=== PATIENT | female | born 1985 | race Hispanic/Latino ===

== ENCOUNTER 2024-10-31 12:37 | Day surgery (SDC) | payer SELFPAY ==
[~2024-10-31] VITALS: Ht 157.5 cm; Wt 68.0 kg
[2024-10-31] VITALS (16 sets, daily range): BP systolic 96–134; BP diastolic 63–91
[~2024-10-31 12:37] MED LIST: ACETAMINOPHEN 1,000 MG/100 ML VIAL IV ONE; DiphenhydrAMINE HCL 50 MG/ML SDV IV ONE; LIDOCAINE HCL 2% 2ML SDV IV ONE; PROPOFOL 200 MG/20 ML VIAL IV ONE; ROCURONIUM BROMIDE 10 MG/ML 5 ML VIAL IV ONE; SODIUM CHLORIDE 0.9% 1,000 ML BAG IV ONE; SUCCINYLCHOLINE CHLORIDE 20 MG/ML 10ML VIAL IV ONE; SUGAMMADEX SODIUM 200 MG/2 ML SDV IV ONE
[2024-10-31] MEDS ORDERED: PROTONIX40 M2 PO (12:55)
[2024-10-31 13:18] LABS: BASO% 0.1 % (0-3); HEMATOCRIT 38.3 % (37.0-47.0); HEMOGLOBIN 12.8 g/dl (12.0-16.0); IMMATURE GRANULOCYTES 0.1 % (0.0-5.0); LYMPH% 5.7 % (15-41); MEAN CELL VOLUME 90.3 fL CALC (80.0-100.0); MEAN CORPUSCULAR HGB 30.2 pG CALC (26.0-32.0); MEAN CORPUSCULAR HGB CONC 33.4 g/dL CAL (32.0-36.0); MONO% 4.1 % (2-13); NEUT# 13.37 thou/uL (2.00-7.15); RED BLOOD COUNT 4.24 mill/uL (4.20-5.60); RED CELL DISTRI WIDTH 12.3 % (11.5-15.5)
[2024-10-31 13:38] LABS: ALBUMIN 4.5 g/dL (3.2-5.0); CREATININE 0.5 mg/dL (0.5-1.0); POTASSIUM 3.3 mmol/l (3.5-5.1); TOTAL PROTEIN 8.1 g/dL (6.3-8.2)
[2024-10-31 13:40] LABS: BILIRUBIN, TOTAL 0.6 mg/dL (0.02-1.3)
[2024-10-31 13:46] LABS: URINE BILIRUBIN - DIPSTICK Negative (NEGATIVE); URINE BLOOD DIPSTICK Trace-intact (NEGATIVE); URINE GLUCOSE - DIPSTICK Negative (NEGATIVE); URINE KETONE 80 mg/dL (NEGATIVE); URINE LEUK ESTERASE Negative (NEGATIVE); URINE NITRITE - DIPSTICK Negative (Negative); URINE PROTEIN - DIPSTICK Negative (NEG-TRACE); URINE SPECIFIC GRAVITY 1.025; URINE UROBILINOGEN - DIPSTICK 0.2 E.U./dL (0.2)
[2024-10-31 13:47] LABS: URINE COLOR Yellow
[2024-10-31] MEDS ORDERED: KETOROLAC TROMETHAMINE 15 MG/ML SDV IV ONE (14:05)
[2024-10-31] MEDS ORDERED: SODIUM CHLORIDE 0.9% 1,000 ML IV ONE (16:05)
[2024-10-31] MEDS ORDERED: PIPERACILLIN Sodium-Tazobactam 3.375 GM in SODIUM CHLORIDE 0.9% 100 ML IV ONE (16:05)
[2024-10-31] MEDS ORDERED: SODIUM CHLORIDE 1,000 ML BTL IR ONE (17:18)
[2024-10-31] MEDS ORDERED: STERILE WATER FOR IRRIGATION 500 ML BTL IR ONE (17:18)
[2024-10-31] MEDS ORDERED: LIDOcaine HCl 1% (Local Anesth.) 20 ML VIAL ONE (17:18)
[2024-10-31] MEDS ORDERED: FAMOTIDINE 10MG/ML 2ML SDV IV ONE (17:31)
[2024-10-31] MEDS ORDERED: PERCOCET 5/325M1 TAB PO (17:31)
== END 2024-10-31 19:38 | disposition home or self-care (01) | DRG 399 ==
LOC: ED 12:37 → ORM 16:32
PROVIDERS: Nurse Practitioner; ATTEND Surgery
PROC: 0DTJ4ZZ Resection of Appendix, Percutaneous Endoscopic Approach (ICD-10-PCS; principal; 2024-10-31)
DX: K35.80 Unspecified acute appendicitis (principal); N83.201 Unspecified ovarian cyst, right side; D25.9 Leiomyoma of uterus, unspecified
CPT/HCPCS: J0131; J1200; J1885; J2543; Q9967